=== PATIENT | male | born 1970 | race Two or more races ===

== ENCOUNTER 2018-02-01 17:57 | Emergency (ER) | payer MEDICAID ==
[~2018-02-01] VITALS: Ht 165.1 cm; Wt 81.6 kg
[2018-02-01 17:59] VITALS: BP 138/85
[2018-02-01] MEDS ORDERED: IBUPROFEN 600 MG TABLET PO ONE (18:26)
[2018-02-01] MEDS: IBUPROFEN 600 MG TABLET PO ONE (18:27)
== END 2018-02-01 19:19 | disposition home or self-care (01) ==
LOC: ER 17:58
DX: M77.11 Lateral epicondylitis, right elbow (principal); F17.210 Nicotine dependence, cigarettes, uncomplicated
CPT/HCPCS: 73080; 99284; 99406; A4606; Z7610

== ENCOUNTER 2018-08-25 22:29 | Emergency (ER) | payer MEDICAID ==
[~2018-08-25] VITALS: Ht 162.6 cm; Wt 83.5 kg
--- NOTE | 2018-08-25 23:05 | NUR ---
PT C/C RT LOWER BACK PAIN AND RIGHT SIDED FLANK X2 DAYS, INTERMITTENT. NO DYSURIA, NO HEMATURIA. -N/V. PT AOX4 WITH FAMILY AT BEDSIDE. PT ON MONITOR IN BED 2. NAD NOTED. RESP EVEN AND UNLABORED. WILL CONTINUE TO MONITOR.
[2018-08-25] MEDS ORDERED: KETOROLAC TROMETHAMINE INJ 30 MG/ML VIAL IV ONE (23:30)
[2018-08-25] MEDS ORDERED: ONDANSETRON HCL/PF 4 MG/2 ML VIAL IVP ONE (23:30)
[2018-08-25] MEDS ORDERED: IV NS 0.9% 500 ML BAG IV ONE (23:30)
[2018-08-25 23:31] VITALS: BP 137/71
[2018-08-25 23:31] LABS: BASOPHILS % (AUTO) 0.6 % (0.0-2.0); EOSINOPHILS % (AUTO) 2.9 % (0.0-6.0); HEMATOCRIT 41 % (39-51); HEMOGLOBIN 13.9 g/dL (13.5-17.5); LYMPHOCYTES % (AUTO) 27.6 % (20.0-44.0); MEAN CORPUSCULAR HGB CONC 34 g/dl (31.0-36.0); MEAN CORPUSCULAR VOLUME 89 fL (80-96); MONOCYTES # (AUTO) 0.5 /CMM (0.1-1.30); MONOCYTES % (AUTO) 6.2 % (2.0-12.0); NEUTROPHILS # (AUTO) 4.6 /CMM (1.8-8.9); NEUTROPHILS % (AUTO) 62.7 % (43.0-81.0); PLATELET COUNT (AUTO) 185 /CMM (150-450); RED BLOOD CELL COUNT(AUTO) 4.59 MIL/uL (4.5-6.0); WHITE BLOOD COUNT (AUTO) 7.3 K/uL (4.3-11.0)
[2018-08-25 23:36] LABS: APPEARANCE,URINE Slightly Cloudy (CLEAR); BILIRUBIN,URINE Negative (NEGATIVE); BLOOD, URINE Negative Ery/uL (NEGATIVE); COLOR,URINE Yellow (YELLOW); KETONES,URINE Trace (NEGATIVE); LEUKOCYTE ESTERASE ,URINE Negative (NEGATIVE); NITRITE, URINE Negative (NEGATIVE); PH,URINE 7.5 (5.0-8.0); PROTEIN,URINE Negative (NEGATIVE); UGLUCOSE Negative (NEGATIVE)
[2018-08-25] MEDS ORDERED: KETOROLAC TROMETHAMINE INJ 30 MG/ML VIAL ONE (23:37)
[2018-08-25] MEDS ORDERED: ONDANSETRON HCL/PF 4 MG/2 ML VIAL ONE (23:37)
[2018-08-25 23:38] LABS: CALCIUM, SERUM 9.2 mg/dL (8.5-10.1); CREATININE 1.2 mg/dL (0.6-1.3); POTASSIUM 3.9 mmol/L (3.5-5.1)
--- NOTE | 2018-08-26 00:19 | NUR ---
PT TAKEN TO RADIOLOGY VIA [facility]
[2018-08-26 00:34] LABS: BACTERIA,URINE Few /HPF (None Seen); RBC,URINE 0-2 /HPF (0-2); SQUAMOUS EPITHELIAL CELL,UR Rare /HPF (None Seen); URINE AMORPHOUS PHOSPHATES Moderate /HPF (None Seen); WBC,URINE 0-2 /HPF (0-3)
--- NOTE | 2018-08-26 01:26 | NUR ---
IV removed. Catheter intact and site benign. Pressure and 4x4 applied to site. No bleeding noted.Patient discharged to home in stable condition. Written and verbal after care instructions given. Patient verbalizes understanding of instruction. PT AMBULATORY WITH STEADY GAIT.
== END 2018-08-26 01:30 | disposition home or self-care (01) ==
LOC: ER 22:32
DX: M54.5 Low back pain (principal); F17.210 Nicotine dependence, cigarettes, uncomplicated
CPT/HCPCS: 36415; 80048-TC; 81000-TC; 85025-TC; J1885; J2405; J7040

== ENCOUNTER 2023-04-15 15:04 | Emergency (ER) | payer MEDICAID ==
[~2023-04-15] VITALS: Ht 162.6 cm; Wt 86.2 kg
[~2023-04-15 15:04] MED LIST: CYCL10TA9 PO; IBUP-1955 PO
[2023-04-15 15:19] VITALS: BP 147/83; TEMP 98.4
[2023-04-15] MEDS ORDERED: KETOROLAC TROMETHAMINE INJ 30 MG/ML VIAL IV ONE (15:30)
[2023-04-15] MEDS ORDERED: CYCLOBENZAPRINE 10 MG TABLET PO ONE (15:30)
[2023-04-15] MEDS ORDERED: dexaMETHasone SOD PHOSPHATE 4 MG/ML VIAL IM ONE (15:30)
[2023-04-15] MEDS ORDERED: dexaMETHasone SOD PHOSPHATE 10 MG/ML VIAL ONE (16:32)
[2023-04-15] MEDS ORDERED: KETOROLAC TROMETHAMINE 15 MG/ML VIAL ONE (16:32)
[2023-04-15] MEDS ORDERED: CYCLOBENZAPRINE 10 MG TABLET ONE (16:33)
[2023-04-15] MEDS ORDERED: CYCL5TAB PO (16:52)
[2023-04-15 16:59] VITALS: O2SAT 98
== END 2023-04-15 17:00 | disposition home or self-care (01) ==
LOC: ER 15:04
DX: G89.29 Other chronic pain (principal); M54.50 Low back pain, unspecified; M54.16 Radiculopathy, lumbar region
CPT/HCPCS: 99284; 96372 ×2; J1100; J1885

== ENCOUNTER 2024-02-15 06:07 | Emergency (ER) | payer OTHER ==
[~2024-02-15] VITALS: Ht 165.1 cm; Wt 90.7 kg
[~2024-02-15 06:07] MED LIST changes: +CYCL5TAB PO
[2024-02-15 07:26] VITALS: BP 145/89; TEMP 97.8; O2SAT 98
[2024-02-15] MEDS ORDERED: NAPR-1164 PO (08:59)
== END 2024-02-15 09:08 | disposition home or self-care (01) ==
LOC: ER 06:07
DX: M17.12 Unilateral primary osteoarthritis, left knee (principal); F17.210 Nicotine dependence, cigarettes, uncomplicated
CPT/HCPCS: 73564-TC